=== PATIENT | male | born 1955 | race Caucasian/White ===

== ENCOUNTER 2018-07-27 13:32 | Outpatient (CLI) | payer MEDICARE ==
--- NOTE | 2018-07-27 15:43 | RAD ---
TWO VIEWS OF THE LEFT SHOULDER: COMPARISON: None. HISTORY: Left shoulder pain after a fall 6 months ago. FINDINGS: Two views of the left shoulder who no evidence of acute fracture or dislocation. No degenerative chas nges are seen. Hardware is seen in the spine. IMPRESSION: No evidence of acute osseous abnormality. POS: [facility]
== END 2018-07-27 13:33 | disposition home or self-care (01) ==
LOC: SCSRAD 13:32
PROVIDERS: ATTEND Family Medicine
DX: S46.912D Strain of unspecified muscle, fascia and tendon at shoulder and upper arm level, left arm, subsequent encounter (principal)
CPT/HCPCS: 36415; 80053; 80061; 81001; 82306; 83540; 83550; 85025; 86803

== ENCOUNTER 2024-04-21 18:35 | Inpatient (IN) | payer MEDICARE ==
[~2024-04-21 18:35] MED LIST: Iopamidol-370 76% 500 ML MDV (1 ML CHARGE) ONE
[2024-04-21] MEDS ORDERED: Piperacillin/Tazobactam 4.5 GM VIAL ONE (19:16)
[2024-04-21] MEDS ORDERED: Sodium Chloride 0.9% 100 ML ONE (19:16)
[2024-04-21 20:51] LABS: #Basophils 0.05 10x3/uL (0.0-0.2); %Basophils 0.4 % (0.0-1.0); %Eosinophils 1.7 % (0.0-10.0); %Lymphocytes 9.9 % (21.0-51.0); %Monocytes 5.4 % (0.0-10.0); %Neutrophils 81.9 % (42.0-75.0); Hematocrit 33.7 % (42.0-52.0); Hemoglobin 10.6 g/dL (14.0-18.0); Mean Corpuscular HGB CONC 31.5 g/dL (32.0-36.0); Mean Corpuscular Hemoglobin 30.4 pg (27.0-31.0); Mean Corpuscular Volume 96.6 fL (78.0-98.0); Mean Platelet Volume 9.1 fL (7.4-10.4); Platelet Count 421 10x3/uL (130-400); RBC Distribution Width 13.8 % (11.5-14.5); Red Blood Cell (RBC) Count 3.49 mill/uL (4.70-6.10)
[2024-04-21 21:05] LABS: ALT (SGPT) 39 U/L (8-55); AST (SGOT) 98 U/L (5-34); Albumin 2.7 g/dL (3.4-4.8); Alkaline Phosphatase 65 U/L (40-110); Anion Gap 15 mmol/L (10-20); BUN (Urea Nitrogen) 34 mg/dL (8.4-25.7); Bilirubin, Total 0.5 mg/dL (0.2-1.2); CRP,High Sensitivity (Inhouse) 8.57 mg/dL (< or = 0.5); Calc. Creatinine Clearance 0 mL/min (70-130); Calcium 8.4 mg/dL (7.8-10.44); Carbon Dioxide 29 mmol/L (23-31); Chloride 99 mmol/L (98-107); Estimated GFR 50; Globulin 3.6 g/dL (2.4-3.5); Glucose 113 mg/dL (80-115); Lipase 9 U/L (8-78); Magnesium 1.9 mg/dL (1.6-2.6); Potassium 4.1 mmol/L (3.5-5.1); Protein, Total 6.3 g/dL (5.8-8.1); Sodium 139 mmol/L (136-145)
[2024-04-21 21:11] LABS: Troponin I Less than 0.010 ng/mL (< 0.028)
[2024-04-21 22:45] LABS: Bilirubin Negative (Negative); Blood, Urine 3+ (Negative); CAUTI Indications for Culture Pelvic or flank pain; Clarity Clear (Clear); Glucose, Urine (Dipstick) Normal (Negative); Ketone, Urine Negative (Negative); Leukocyte 500 Leu/uL (Negative); Nitrite Negative (Negative); Protein, Urine (Dipstick) 10 mg/dL (Neg-Trace); Specific Gravity, Urine 1.022 (1.002-1.036); Urobilinogen Normal mg/dL (Less than 2); WBC/HPF Greater than 50 HPF (0-3); pH, Urine 6.5 (5.0-9.0)
[2024-04-21 22:58] LABS: Squamous Epithelial 0-3 HPF (0-3); Transitional Epithelial 0-3 HPF (None Seen)
[2024-04-21 22:59] LABS: Bacteria/HPF Rare-Few HPF (None Seen)
[2024-04-21 23:00] LABS: Urine Culture Reflex Yes Yes
[2024-04-22 01:15] VITALS: BMI 40.3
[2024-04-22] MEDS: Vancomycin (BATCH) 2.5 GM in Premix 1 BAG IVPB SCH (02:52)
[2024-04-22] MEDS: Piperacillin/Tazobactam 3.375 GM in Sodium Chloride 0.9% 100 ML IVPB SCH (03:32)
[2024-04-22] MEDS: Lactated Ringer's 1,000 ML IV SCH ×2 (03:32→15:10)
[2024-04-22 04:20] LABS: Vancomycin, Random 36.5 ug/mL (See Comment)
[2024-04-22] MEDS ORDERED: Vancomycin 2 GM in Sodium Chloride 0.9% 500 ML IVPB SCH (09:00)
[2024-04-22] MEDS: Enoxaparin 40 MG (0.4 mL) SYRINGE SC SCH (09:16)
[2024-04-22 13:22] LABS: #Basophils 0.04 10x3/uL (0.0-0.2); %Basophils 0.5 % (0.0-1.0); %Eosinophils 1.2 % (0.0-10.0); %Lymphocytes 8.5 % (21.0-51.0); %Monocytes 6.8 % (0.0-10.0); %Neutrophils 82.3 % (42.0-75.0); Hematocrit 28.3 % (42.0-52.0); Mean Corpuscular HGB CONC 31.8 g/dL (32.0-36.0); Mean Corpuscular Hemoglobin 30.1 pg (27.0-31.0); Mean Corpuscular Volume 94.6 fL (78.0-98.0); Mean Platelet Volume 9.3 fL (7.4-10.4); Platelet Count 372 10x3/uL (130-400); RBC Distribution Width 13.7 % (11.5-14.5); Red Blood Cell (RBC) Count 2.99 mill/uL (4.70-6.10)
[2024-04-22] MEDS ORDERED: Vancomycin (BATCH) 1.75 GM in Premix 1 BAG IVPB SCH (22:00)
[2024-04-22] MEDS: Vancomycin (BATCH) 1.5 GM in Premix 1 BAG IVPB SCH (23:09)
[2024-04-22] MEDS: Albumin 25% 25 GM (100 mL) BOT IVPB SCH (23:42)
[2024-04-22 23:48] LABS: #Basophils 0.04 10x3/uL (0.0-0.2); %Basophils 0.6 % (0.0-1.0); %Eosinophils 2.4 % (0.0-10.0); %Lymphocytes 17.9 % (21.0-51.0); %Monocytes 11.6 % (0.0-10.0); %Neutrophils 66.8 % (42.0-75.0); Hematocrit 25.7 % (42.0-52.0); Hemoglobin 8.1 g/dL (14.0-18.0); Mean Corpuscular HGB CONC 31.5 g/dL (32.0-36.0); Mean Corpuscular Hemoglobin 30.5 pg (27.0-31.0); Mean Corpuscular Volume 96.6 fL (78.0-98.0); Mean Platelet Volume 9.4 fL (7.4-10.4); Platelet Count 309 10x3/uL (130-400); RBC Distribution Width 13.9 % (11.5-14.5); Red Blood Cell (RBC) Count 2.66 mill/uL (4.70-6.10)
[2024-04-23] LABS: ALT (SGPT) 28 U/L (8-55); AST (SGOT) 54 U/L (5-34); Alkaline Phosphatase 45 U/L (40-110); Anion Gap 11 mmol/L (10-20); BUN (Urea Nitrogen) 24 mg/dL (8.4-25.7); Bilirubin, Total 0.4 mg/dL (0.2-1.2); Calc. Creatinine Clearance 145 mL/min (70-130); Calcium 7.6 mg/dL (7.8-10.44); Carbon Dioxide 24 mmol/L (23-31); Chloride 103 mmol/L (98-107); Estimated GFR 94; Globulin 2.9 g/dL (2.4-3.5); Glucose 131 mg/dL (80-115); Potassium 3.9 mmol/L (3.5-5.1); Protein, Total 4.9 g/dL (5.8-8.1); Sodium 134 mmol/L (136-145)
[2024-04-23] MEDS: tiZANidine HCl 4 MG TAB PO SCH (00:30)
[2024-04-23] MEDS ORDERED: NOREPINEPHRINE 8 MG/250 ML-D5W 250 ML IVPB SCH (00:45)
[2024-04-23 01:20] LABS: Magnesium 1.5 mg/dL (1.6-2.6)
[2024-04-23] MEDS ORDERED: Electrolyte Replacement Protocol 1 EACH FS PRN (03:03)
[2024-04-23] MEDS: Magnesium 2 GM/50 ML(in water) 2 GM in Premix 1 BAG IVPB SCH ×2 (03:32→12:06)
[2024-04-23] MEDS: Vancomycin 1 GM in Premix 1 BAG IVPB SCH (08:07)
[2024-04-23] MEDS: Enoxaparin 40 MG (0.4 mL) SYRINGE SC SCH (08:07)
[2024-04-23] MEDS: Famotidine 20 MG TAB PO SCH (08:08)
[2024-04-23] MEDS: Pregabalin 75 MG CAP PO SCH (08:10)
[2024-04-23 08:35] LABS: ALT (SGPT) 72 U/L (8-55); AST (SGOT) 97 U/L (5-34); Albumin 2.5 g/dL (3.4-4.8); Alkaline Phosphatase 72 U/L (40-110); Anion Gap 13 mmol/L (10-20); BUN (Urea Nitrogen) 20 mg/dL (8.4-25.7); Bilirubin, Total 0.6 mg/dL (0.2-1.2); CK (CPK) 2222 U/L (30-200); Calc. Creatinine Clearance 161 mL/min (70-130); Calcium 7.9 mg/dL (7.8-10.44); Carbon Dioxide 23 mmol/L (23-31); Chloride 106 mmol/L (98-107); Estimated GFR 97; Globulin 2.8 g/dL (2.4-3.5); Glucose 96 mg/dL (80-115); Magnesium 1.6 mg/dL (1.6-2.6); Protein, Total 5.3 g/dL (5.8-8.1); Sodium 138 mmol/L (136-145)
[2024-04-23 09:14] LABS: #Basophils 0.03 10x3/uL (0.0-0.2); %Basophils 0.4 % (0.0-1.0); %Eosinophils 2.8 % (0.0-10.0); %Lymphocytes 10.1 % (21.0-51.0); %Monocytes 8.6 % (0.0-10.0); %Neutrophils 77.5 % (42.0-75.0); Hematocrit 28.3 % (42.0-52.0); Hemoglobin 8.9 g/dL (14.0-18.0); Mean Corpuscular HGB CONC 31.4 g/dL (32.0-36.0); Mean Corpuscular Hemoglobin 30.4 pg (27.0-31.0); Mean Corpuscular Volume 96.6 fL (78.0-98.0); Mean Platelet Volume 9.1 fL (7.4-10.4); Platelet Count 329 10x3/uL (130-400); RBC Distribution Width 13.8 % (11.5-14.5); Red Blood Cell (RBC) Count 2.93 mill/uL (4.70-6.10)
[2024-04-23 11:02] LABS: Platelet Adequacy Comment Platelets Normal; Polychromasia SLIGHT = 2-3 cells HPF (0-2); Stomatocytes SLIGHT = 2-5 cells HPF (0-1)
[2024-04-23] MEDS: oxyCODONE ER 80 MG TAB PO SCH (11:41)
[2024-04-23] MEDS: HYDROcodone/Acetaminophen 5/325 mg Tablet PO PRN (18:36)
[2024-04-23] MEDS: Acetaminophen 325 MG TAB PO PRN (19:33)
[2024-04-24 05:10] LABS: Vancomycin, Random 31.7 ug/mL (See Comment)
[2024-04-24 05:11] LABS: Calc. Creatinine Clearance 179 mL/min (70-130); Estimated GFR 100; Magnesium 1.8 mg/dL (1.6-2.6)
[2024-04-24] MEDS: Magnesium 2 GM/50 ML(in water) 2 GM in Premix 1 BAG IVPB SCH (08:02)
[2024-04-24 10:23] VITALS: BMI 39.5
[2024-04-24] MEDS: Diazepam 5 MG TAB PO SCH (20:54)
[2024-04-24] MEDS: oxyCODONE 5 MG TAB PO SCH (20:55)
[2024-04-24] MEDS: Vancomycin HCl 750 MG in Sodium Chloride 0.9% 250 ML 250 ML IVPB SCH (21:38)
[2024-04-25] MEDS: FLU (Fluad Triv) TS24-25 (65UP)/MF59C/PF 45 MCG/0.5 ML Syringe IM ONE (07:35)
[2024-04-25] MEDS ORDERED: Sodium Chloride 0.9% 100 ML ONE (17:14)
[2024-04-25] MEDS ORDERED: Piperacillin/Tazobactam 3.375 GM VIAL ONE (17:14)
[2024-04-25] MEDS ORDERED: PROPOFOL 20 ML ONE (17:42)
[2024-04-25] MEDS ORDERED: fentaNYL 50 mcg/mL 1 mL Vial ONE (17:43)
[2024-04-25] MEDS ORDERED: Midazolam HCl 2 mg/2 ml Vial ONE ×3 (18:21→18:30)
[2024-04-25] MEDS ORDERED: fentaNYL PF 100 MCG/2 ML SYRINGE ONE (18:22)
[2024-04-25] MEDS ORDERED: Labetalol HCl 100 MG/20 ML VIAL ONE (18:48)
[2024-04-26 06:18] LABS: Vancomycin, Random 23.9 ug/mL (See Comment)
[2024-04-26 08:37] LABS: #Basophils 0.05 10x3/uL (0.0-0.2); %Basophils 0.7 % (0.0-1.0); %Lymphocytes 16.8 % (21.0-51.0); %Monocytes 7.8 % (0.0-10.0); %Neutrophils 70.3 % (42.0-75.0); Hematocrit 27.4 % (42.0-52.0); Hemoglobin 8.7 g/dL (14.0-18.0); Mean Corpuscular HGB CONC 31.8 g/dL (32.0-36.0); Mean Corpuscular Hemoglobin 30.4 pg (27.0-31.0); Mean Corpuscular Volume 95.8 fL (78.0-98.0); Platelet Count 338 10x3/uL (130-400); RBC Distribution Width 13.6 % (11.5-14.5); Red Blood Cell (RBC) Count 2.86 mill/uL (4.70-6.10)
[2024-04-26 08:55] LABS: ALT (SGPT) 29 U/L (8-55); AST (SGOT) 19 U/L (5-34); Albumin 2.3 g/dL (3.4-4.8); Alkaline Phosphatase 57 U/L (40-110); Anion Gap 10 mmol/L (10-20); BUN (Urea Nitrogen) 12 mg/dL (8.4-25.7); Bilirubin, Total 0.4 mg/dL (0.2-1.2); CK (CPK) 177 U/L (30-200); Calc. Creatinine Clearance 198 mL/min (70-130); Calcium 8.1 mg/dL (7.8-10.44); Carbon Dioxide 26 mmol/L (23-31); Chloride 106 mmol/L (98-107); Estimated GFR 102; Globulin 2.9 g/dL (2.4-3.5); Glucose 92 mg/dL (80-115); Magnesium 1.8 mg/dL (1.6-2.6); Potassium 3.3 mmol/L (3.5-5.1); Protein, Total 5.2 g/dL (5.8-8.1); Sodium 139 mmol/L (136-145)
[2024-04-26] MEDS: Magnesium 2 GM/50 ML(in water) 2 GM in Premix 1 BAG IVPB SCH (10:49)
[2024-04-26] MEDS: Potassium Chloride 20 MEQ TAB PO SCH (10:49)
[2024-04-26] MEDS: LevoFLOXacin 750 MG TAB PO SCH (14:45)
[2024-04-26 14:51] VITALS: BP 132/80; TEMP 97.5
== END 2024-04-26 15:50 | disposition home or self-care (01) | DRG 673 ==
LOC: ERS 18:35 → PCU 22:59 → OBSVTOIN 04-22 12:00 → 2SE 04-22 22:41 → CCU 04-23 01:12 → SURG B 04-23 09:58
PROVIDERS: ADMIT Internal Medicine; ATTEND Internal Medicine
PROC: 0JB70ZZ Excision of Back Subcutaneous Tissue and Fascia, Open Approach (ICD-10-PCS; principal; 2024-04-25)
DX: T83.511A Infection and inflammatory reaction due to indwelling urethral catheter, initial encounter (principal); A41.9 Sepsis, unspecified organism; R65.20 Severe sepsis without septic shock; G82.20 Paraplegia, unspecified; N10 Acute pyelonephritis; L03.319 Cellulitis of trunk, unspecified; M62.82 Rhabdomyolysis; Z68.41 Body mass index [BMI] 40.0-44.9, adult; N17.9 Acute kidney failure, unspecified; N39.0 Urinary tract infection, site not specified; E66.01 Morbid (severe) obesity due to excess calories; I10 Essential (primary) hypertension; K59.00 Constipation, unspecified; R33.9 Retention of urine, unspecified; F17.210 Nicotine dependence, cigarettes, uncomplicated; G47.33 Obstructive sleep apnea (adult) (pediatric); L89.152 Pressure ulcer of sacral region, stage 2; N18.2 Chronic kidney disease, stage 2 (mild); I12.9 Hypertensive chronic kidney disease with stage 1 through stage 4 chronic kidney disease, or unspecified chronic kidney disease; Z74.01 Bed confinement status
CPT/HCPCS: 36415; 36416; 71045; 71275; 74177; 80053; 80202; 81001; 82550; 82565; 83605; 83690; 83735; 83880; 84484; 85025; 86141; 87040; 87070; 87077; 87086; 87205; 88304; 93005; 96365; 96366; 96375; 97139; C1751; J1650; J2250; J2543; J2704; J3010; J3370; J3370-JW; J3475; J7050; J7120; P9047; Q9967

== ENCOUNTER 2024-05-07 14:22 | Inpatient (IN) | payer MEDICARE ==
[2024-05-07 15:30] LABS: ALT (SGPT) 16 U/L (8-55); AST (SGOT) 31 U/L (5-34); Albumin 2.9 g/dL (3.4-4.8); Alkaline Phosphatase 65 U/L (40-110); Anion Gap 14 mmol/L (10-20); BUN (Urea Nitrogen) 51 mg/dL (8.4-25.7); Bilirubin, Total 0.5 mg/dL (0.2-1.2); Calc. Creatinine Clearance 0 mL/min (70-130); Calcium 8.8 mg/dL (7.8-10.44); Carbon Dioxide 23 mmol/L (23-31); Chloride 99 mmol/L (98-107); Estimated GFR 52; Globulin 3.7 g/dL (2.4-3.5); Glucose 98 mg/dL (80-115); Lipase 7 U/L (8-78); Magnesium 2.8 mg/dL (1.6-2.6); Potassium 5.1 mmol/L (3.5-5.1); Protein, Total 6.6 g/dL (5.8-8.1); Sodium 131 mmol/L (136-145)
[2024-05-07] MEDS ORDERED: Sodium Chloride 0.9% 100 ML ONE (15:37)
[2024-05-07] MEDS ORDERED: Cefepime 2 GM VIAL ONE (15:37)
[2024-05-07 15:55] LABS: #Basophils 0.08 10x3/uL (0.0-0.2); %Basophils 0.8 % (0.0-1.0); %Eosinophils 1.9 % (0.0-10.0); %Lymphocytes 11.5 % (21.0-51.0); %Monocytes 8.3 % (0.0-10.0); %Neutrophils 76.5 % (42.0-75.0); Hematocrit 35.6 % (42.0-52.0); Hemoglobin 11.6 g/dL (14.0-18.0); Mean Corpuscular HGB CONC 32.6 g/dL (32.0-36.0); Mean Corpuscular Hemoglobin 29.4 pg (27.0-31.0); Mean Corpuscular Volume 90.4 fL (78.0-98.0); Platelet Count 291 10x3/uL (130-400); RBC Distribution Width 14.5 % (11.5-14.5); Red Blood Cell (RBC) Count 3.94 mill/uL (4.70-6.10)
[2024-05-07] MEDS ORDERED: Ondansetron ODT 4 MG TAB SL PRN (18:15)
[2024-05-07] MEDS ORDERED: Ondansetron PF 4 MG/2 ML Vial IVP PRN ×2 (18:15→19:31)
[2024-05-07] MEDS ORDERED: Acetaminophen 325 MG TAB PO PRN (18:15)
[2024-05-07 19:16] LABS: Lactic Acid 2.04 mmol/L (0.5-2.2)
[2024-05-07] MEDS ORDERED: Bisacodyl 10 MG SUPP PR PRN (19:51)
[2024-05-07] MEDS: Vancomycin (BATCH) 2 GM in Premix 1 BAG IVPB SCH (21:04)
[2024-05-07] MEDS: Sodium Chloride 0.9% 1,000 ML IV SCH ×2 (21:10→23:50)
[2024-05-07] MEDS: Diazepam 5 MG TAB PO SCH (22:19)
[2024-05-07] MEDS: oxyCODONE ER 80 MG TAB PO SCH (22:20)
[2024-05-07] MEDS: Methenamine Hippurate 1 GM TAB PO SCH (22:20)
[2024-05-07] MEDS: Heparin 5,000 UNITS/ML VIAL SC SCH (22:22)
[2024-05-07 23:36] VITALS: BMI 41.8
[2024-05-07] MEDS: tiZANidine HCl 4 MG TAB PO SCH (23:44)
[2024-05-07] MEDS: Vancomycin 1 GM in Premix 1 BAG IVPB SCH (23:45)
[2024-05-08] MEDS: Cefepime 1 GM in Sodium Chloride 0.9% 100 ML IVPB SCH (03:13)
[2024-05-08 06:28] LABS: Vancomycin, Random 19.5 ug/mL (See Comment)
[2024-05-08 06:31] LABS: Anion Gap 15 mmol/L (10-20); BUN (Urea Nitrogen) 43 mg/dL (8.4-25.7); Calc. Creatinine Clearance 121 mL/min (70-130); Calcium 8.4 mg/dL (7.8-10.44); Carbon Dioxide 20 mmol/L (23-31); Chloride 105 mmol/L (98-107); Estimated GFR 79; Glucose 101 mg/dL (80-115); Potassium 5.3 mmol/L (3.5-5.1); Sodium 135 mmol/L (136-145)
[2024-05-08] MEDS ORDERED: Triamterene/Hydrochlorothiazide 37.5 mg/25 mg Tablet PO SCH (09:00)
[2024-05-08] MEDS: Lisinopril 10 MG TAB PO SCH (09:12)
[2024-05-08] MEDS: Pregabalin 75 MG CAP PO SCH (09:13)
[2024-05-08] MEDS: Cefepime 2 GM in Sodium Chloride 0.9% 100 ML IVPB SCH (15:35)
[2024-05-08] MEDS: Vancomycin (BATCH) 1.5 GM in Premix 1 BAG IVPB SCH (18:13)
[2024-05-08] MEDS: oxyCODONE 5 MG TAB PO SCH (20:02)
[2024-05-08 20:27] LABS: #Basophils 0.08 10x3/uL (0.0-0.2); %Basophils 0.7 % (0.0-1.0); %Lymphocytes 7.2 % (21.0-51.0); %Monocytes 9.1 % (0.0-10.0); %Neutrophils 81.2 % (42.0-75.0); Hematocrit 31.8 % (42.0-52.0); Hemoglobin 10.1 g/dL (14.0-18.0); Mean Corpuscular HGB CONC 31.8 g/dL (32.0-36.0); Mean Corpuscular Hemoglobin 29.8 pg (27.0-31.0); Mean Corpuscular Volume 93.8 fL (78.0-98.0); Mean Platelet Volume 9.6 fL (7.4-10.4); Platelet Count 353 10x3/uL (130-400); RBC Distribution Width 14.2 % (11.5-14.5); Red Blood Cell (RBC) Count 3.39 mill/uL (4.70-6.10)
[2024-05-08] MEDS: oxyCODONE ER 80 MG TAB PO SCH (20:45)
[2024-05-09] MEDS ORDERED: oxyCODONE 5 MG TAB PO SCH (03:00)
[2024-05-09] MEDS ORDERED: PROPOFOL 200 MG/20 ML VIAL ONE (06:20)
[2024-05-09] MEDS ORDERED: Bupivacaine 0.25% HCL 30 ML VIAL ONE (06:20)
[2024-05-09] MEDS ORDERED: EPINEPHrine 1 MG/ML AMP ONE (06:20)
[2024-05-09] MEDS ORDERED: Lidocaine 2% PF 5 ML VIAL ONE (06:20)
[2024-05-09] MEDS ORDERED: Diazepam 5 MG TAB ONE (20:10)
[2024-05-09] MEDS ORDERED: Methenamine Hippurate 1 GM TAB ONE (20:10)
[2024-05-09] MEDS ORDERED: Heparin 5,000 UNITS/ML VIAL ONE (20:10)
[2024-05-09] MEDS ORDERED: Oxybutynin 5 MG TAB ONE (20:10)
[2024-05-09] MEDS ORDERED: tiZANidine HCl 4 MG TAB ONE (20:10)
[2024-05-09] MEDS ORDERED: oxyCODONE ER 80 MG TAB ONE (21:15)
[2024-05-10] MEDS ORDERED: Pregabalin 75 MG CAP ONE ×2 (03:40)
[2024-05-10] MEDS ORDERED: Oxybutynin 5 MG TAB ONE (03:40)
[2024-05-10] MEDS ORDERED: Sodium Chloride 0.9% 1,000 ML BAG ONE (03:40)
[2024-05-10] MEDS ORDERED: Cefepime 2 GM VIAL ONE (03:40)
[2024-05-10] MEDS ORDERED: oxyCODONE ER 80 MG TAB ONE ×2 (06:31→20:10)
[2024-05-10] MEDS ORDERED: Methenamine Hippurate 1 GM TAB ONE ×2 (08:56→20:10)
[2024-05-10] MEDS ORDERED: Heparin 5,000 UNITS/ML VIAL ONE ×2 (08:56→20:10)
[2024-05-10] MEDS ORDERED: Lisinopril 10 MG TAB ONE (08:56)
[2024-05-10] MEDS: Acetaminophen 325 MG TAB PO PRN (16:58)
[2024-05-10] MEDS: Polyethylene Glycol 3350 17 GM Packet PO PRN (17:05)
[2024-05-10] MEDS: Pregabalin 75 MG CAP ONE (18:45)
[2024-05-10] MEDS: tiZANidine HCl 4 MG TAB ONE (18:45)
[2024-05-10] MEDS: Diazepam 5 MG TAB ONE (18:45)
[2024-05-10] MEDS ORDERED: Diazepam 5 MG TAB ONE (20:10)
[2024-05-11] MEDS: Diazepam 5 MG TAB ONE ×2 (02:55→20:03)
[2024-05-11] MEDS: tiZANidine HCl 4 MG TAB ONE ×2 (02:56→20:03)
[2024-05-11] MEDS ORDERED: Sodium Chloride 0.9% 1,000 ML BAG ONE (03:10)
[2024-05-11] MEDS ORDERED: Cefepime 2 GM VIAL ONE (03:10)
[2024-05-11] MEDS ORDERED: Oxybutynin 5 MG TAB ONE (03:10)
[2024-05-11] MEDS: Pregabalin 75 MG CAP ONE (03:28)
[2024-05-11] MEDS ORDERED: oxyCODONE ER 80 MG TAB ONE (06:06)
[2024-05-11 06:53] LABS: Vancomycin, Random 22.7 ug/mL (See Comment)
[2024-05-11 08:30] LABS: #Basophils 0.05 10x3/uL (0.0-0.2); %Basophils 0.7 % (0.0-1.0); %Eosinophils 2.3 % (0.0-10.0); %Lymphocytes 11.6 % (21.0-51.0); %Monocytes 9.5 % (0.0-10.0); %Neutrophils 75.3 % (42.0-75.0); Hematocrit 29.5 % (42.0-52.0); Hemoglobin 9.2 g/dL (14.0-18.0); Mean Corpuscular HGB CONC 31.2 g/dL (32.0-36.0); Mean Corpuscular Hemoglobin 29.3 pg (27.0-31.0); Mean Corpuscular Volume 93.9 fL (78.0-98.0); Mean Platelet Volume 9.3 fL (7.4-10.4); Platelet Count 337 10x3/uL (130-400); RBC Distribution Width 14.3 % (11.5-14.5); Red Blood Cell (RBC) Count 3.14 mill/uL (4.70-6.10)
[2024-05-11 08:57] LABS: ALT (SGPT) 14 U/L (8-55); AST (SGOT) 12 U/L (5-34); Albumin 2.2 g/dL (3.4-4.8); Alkaline Phosphatase 62 U/L (40-110); Anion Gap 12 mmol/L (10-20); BUN (Urea Nitrogen) 17 mg/dL (8.4-25.7); Bilirubin, Total 0.4 mg/dL (0.2-1.2); Calc. Creatinine Clearance 204 mL/min (70-130); Calcium 8.4 mg/dL (7.8-10.44); Carbon Dioxide 26 mmol/L (23-31); Chloride 105 mmol/L (98-107); Estimated GFR 105; Globulin 3.6 g/dL (2.4-3.5); Glucose 112 mg/dL (80-115); Potassium 4.3 mmol/L (3.5-5.1); Protein, Total 5.8 g/dL (5.8-8.1); Sodium 139 mmol/L (136-145)
[2024-05-11 09:09] VITALS: BMI 41.8
[2024-05-11] MEDS: Micafungin 100 MG in Sodium Chloride 0.9% 100 ML IVPB SCH (14:57)
[2024-05-11] MEDS: Vancomycin (BATCH) 1.5 GM in Premix 1 BAG IVPB SCH (18:24)
[2024-05-12] MEDS: Pregabalin 75 MG CAP ONE ×2 (03:06→08:39)
[2024-05-12 06:27] LABS: #Basophils 0.08 10x3/uL (0.0-0.2); %Basophils 1.2 % (0.0-1.0); %Eosinophils 4.5 % (0.0-10.0); %Lymphocytes 16.2 % (21.0-51.0); %Monocytes 9.4 % (0.0-10.0); %Neutrophils 68.3 % (42.0-75.0); Hematocrit 31.5 % (42.0-52.0); Hemoglobin 9.7 g/dL (14.0-18.0); Mean Corpuscular HGB CONC 30.8 g/dL (32.0-36.0); Mean Corpuscular Hemoglobin 29.4 pg (27.0-31.0); Mean Corpuscular Volume 95.5 fL (78.0-98.0); Mean Platelet Volume 9.1 fL (7.4-10.4); Platelet Count 329 10x3/uL (130-400); RBC Distribution Width 14.3 % (11.5-14.5)
[2024-05-12 06:46] LABS: Anion Gap 13 mmol/L (10-20); BUN (Urea Nitrogen) 15 mg/dL (8.4-25.7); Calc. Creatinine Clearance 211 mL/min (70-130); Calcium 8.6 mg/dL (7.8-10.44); Carbon Dioxide 24 mmol/L (23-31); Chloride 107 mmol/L (98-107); Estimated GFR 106; Glucose 102 mg/dL (80-115); Potassium 3.8 mmol/L (3.5-5.1); Sodium 140 mmol/L (136-145)
[2024-05-12] MEDS: Morphine 4 MG/ML VIAL SLOW IVP SCH (10:09)
[2024-05-12] MEDS: oxyCODONE ER 80 MG TAB ONE ×2 (10:10→20:32)
[2024-05-12] MEDS: Morphine 4 MG/ML VIAL ONE (10:10)
[2024-05-12] MEDS: Lidocaine 1% (PF) 30 ML VIAL ONE (14:12)
[2024-05-12] MEDS: tiZANidine HCl 4 MG TAB ONE (20:32)
[2024-05-12] MEDS: Diazepam 5 MG TAB ONE (20:32)
[2024-05-13] MEDS: Pregabalin 75 MG CAP ONE ×2 (03:12→08:47)
[2024-05-13] MEDS: oxyCODONE ER 80 MG TAB ONE ×3 (06:30→20:17)
[2024-05-13 09:50] LABS: #Basophils 0.08 10x3/uL (0.0-0.2); %Eosinophils 3.8 % (0.0-10.0); %Monocytes 8.1 % (0.0-10.0); %Neutrophils 72.1 % (42.0-75.0); Hematocrit 32.1 % (42.0-52.0); Hemoglobin 9.7 g/dL (14.0-18.0); Mean Corpuscular HGB CONC 30.2 g/dL (32.0-36.0); Mean Corpuscular Hemoglobin 28.9 pg (27.0-31.0); Mean Corpuscular Volume 95.5 fL (78.0-98.0); Mean Platelet Volume 9.1 fL (7.4-10.4); Platelet Count 383 10x3/uL (130-400); RBC Distribution Width 14.3 % (11.5-14.5); Red Blood Cell (RBC) Count 3.36 mill/uL (4.70-6.10)
[2024-05-13 10:09] LABS: Anion Gap 12 mmol/L (10-20); BUN (Urea Nitrogen) 16 mg/dL (8.4-25.7); Calc. Creatinine Clearance 223 mL/min (70-130); Calcium 8.5 mg/dL (7.8-10.44); Carbon Dioxide 23 mmol/L (23-31); Chloride 107 mmol/L (98-107); Estimated GFR 107; Glucose 127 mg/dL (80-115); Potassium 3.7 mmol/L (3.5-5.1); Sodium 138 mmol/L (136-145)
[2024-05-13 10:10] LABS: Vancomycin, Random 19.8 ug/mL (See Comment)
[2024-05-13] MEDS: tiZANidine HCl 4 MG TAB ONE (20:16)
[2024-05-13] MEDS: Diazepam 5 MG TAB ONE (20:16)
[2024-05-14] MEDS: Oxymetazoline HCl 0.05% (30 ML BOT) NS PRN (03:55)
[2024-05-14] MEDS: oxyCODONE ER 80 MG TAB ONE ×2 (08:26→21:10)
[2024-05-14] MEDS: Pregabalin 75 MG CAP ONE (08:26)
[2024-05-14] MEDS: Morphine 4 MG/ML VIAL SLOW IVP SCH (14:53)
[2024-05-14] MEDS: tiZANidine HCl 4 MG TAB ONE (19:25)
[2024-05-14] MEDS: Diazepam 5 MG TAB ONE (19:25)
[2024-05-15] MEDS: Pregabalin 75 MG CAP ONE ×2 (05:15→10:37)
[2024-05-15 06:10] LABS: #Basophils 0.06 10x3/uL (0.0-0.2); %Basophils 0.7 % (0.0-1.0); %Eosinophils 4.8 % (0.0-10.0); %Lymphocytes 17.6 % (21.0-51.0); %Monocytes 10.2 % (0.0-10.0); %Neutrophils 65.5 % (42.0-75.0); Hematocrit 26.9 % (42.0-52.0); Hemoglobin 8.3 g/dL (14.0-18.0); Mean Corpuscular HGB CONC 30.9 g/dL (32.0-36.0); Mean Corpuscular Hemoglobin 28.9 pg (27.0-31.0); Mean Corpuscular Volume 93.7 fL (78.0-98.0); Mean Platelet Volume 9.4 fL (7.4-10.4); Platelet Count 379 10x3/uL (130-400); RBC Distribution Width 14.4 % (11.5-14.5); Red Blood Cell (RBC) Count 2.87 mill/uL (4.70-6.10)
[2024-05-15 06:27] LABS: Anion Gap 10 mmol/L (10-20); BUN (Urea Nitrogen) 17 mg/dL (8.4-25.7); Calc. Creatinine Clearance 204 mL/min (70-130); Calcium 8.3 mg/dL (7.8-10.44); Carbon Dioxide 27 mmol/L (23-31); Chloride 103 mmol/L (98-107); Estimated GFR 105; Glucose 101 mg/dL (80-115); Potassium 3.7 mmol/L (3.5-5.1); Sodium 136 mmol/L (136-145)
[2024-05-15] MEDS: oxyCODONE ER 80 MG TAB ONE (08:17)
[2024-05-15] MEDS: Diazepam 5 MG TAB ONE (20:37)
[2024-05-15] MEDS: oxyCODONE ER 80 MG TAB PO SCH (20:53)
[2024-05-15] MEDS: tiZANidine HCl 4 MG TAB PO SCH (20:54)
[2024-05-16] MEDS: oxyCODONE ER 80 MG TAB PO SCH (08:17)
[2024-05-16 08:33] LABS: #Basophils 0.04 10x3/uL (0.0-0.2); %Basophils 0.5 % (0.0-1.0); %Eosinophils 4.7 % (0.0-10.0); %Lymphocytes 13.9 % (21.0-51.0); %Monocytes 7.8 % (0.0-10.0); %Neutrophils 72.2 % (42.0-75.0); Hematocrit 26.9 % (42.0-52.0); Hemoglobin 8.1 g/dL (14.0-18.0); Mean Corpuscular HGB CONC 30.1 g/dL (32.0-36.0); Mean Corpuscular Hemoglobin 28.4 pg (27.0-31.0); Mean Corpuscular Volume 94.4 fL (78.0-98.0); Mean Platelet Volume 9.3 fL (7.4-10.4); Platelet Count 383 10x3/uL (130-400); RBC Distribution Width 14.6 % (11.5-14.5); Red Blood Cell (RBC) Count 2.85 mill/uL (4.70-6.10)
[2024-05-16 08:51] LABS: Anion Gap 12 mmol/L (10-20); BUN (Urea Nitrogen) 18 mg/dL (8.4-25.7); Calc. Creatinine Clearance 223 mL/min (70-130); Calcium 8.6 mg/dL (7.8-10.44); Carbon Dioxide 26 mmol/L (23-31); Chloride 106 mmol/L (98-107); Estimated GFR 107; Glucose 105 mg/dL (80-115); Potassium 3.9 mmol/L (3.5-5.1); Sodium 140 mmol/L (136-145)
[2024-05-16] MEDS: Pregabalin 75 MG CAP PO SCH (08:58)
[2024-05-16] MEDS: Diazepam 5 MG TAB ONE (20:37)
[2024-05-17] MEDS: Ascorbic Acid 500 mg Chewable Tablet PO SCH (18:29)
[2024-05-17] MEDS: Ferrous Sulfate 325 MG TAB PO SCH (18:29)
[2024-05-17] MEDS: Diazepam 5 MG TAB ONE (20:36)
[2024-05-18 07:43] VITALS: BP 115/64; TEMP 97.7
[2024-05-18] MEDS ORDERED: Loratadine 10 MG TAB PO SCH (09:00)
== END 2024-05-18 09:56 | DRG 856 ==
LOC: ERS 14:22 → T4-B 18:02
PROVIDERS: ADMIT Internal Medicine; ATTEND Hospitalist
PROC: 0JB80ZZ Excision of Abdomen Subcutaneous Tissue and Fascia, Open Approach (ICD-10-PCS; principal; 2024-05-07)
PROC: 3E04329 Introduction of Other Anti-infective into Central Vein, Percutaneous Approach (ICD-10-PCS; 2024-05-07)
DX: T81.49XA Infection following a procedure, other surgical site, initial encounter (principal); A41.9 Sepsis, unspecified organism; R53.2 Functional quadriplegia; L03.313 Cellulitis of chest wall; N17.9 Acute kidney failure, unspecified; L03.312 Cellulitis of back [any part except buttock and flank]; E87.1 Hypo-osmolality and hyponatremia; Z68.41 Body mass index [BMI] 40.0-44.9, adult; N39.0 Urinary tract infection, site not specified; I96 Gangrene, not elsewhere classified; T81.44XA Sepsis following a procedure, initial encounter; I10 Essential (primary) hypertension; E66.01 Morbid (severe) obesity due to excess calories; E78.5 Hyperlipidemia, unspecified; E87.5 Hyperkalemia; G47.33 Obstructive sleep apnea (adult) (pediatric); N31.9 Neuromuscular dysfunction of bladder, unspecified; L89.892 Pressure ulcer of other site, stage 2; Z79.899 Other long term (current) drug therapy; Z86.19 Personal history of other infectious and parasitic diseases; Z74.01 Bed confinement status; Z87.828 Personal history of other (healed) physical injury and trauma
CPT/HCPCS: 36415; 36416; 74177; 80048; 80053; 80202; 82565; 83605; 83690; 83735; 85025; 86141; 87040; 87070; 87077; 87205; 93005; 96361; 96365; 96366; 96367; 97139; J0171; J0665; J0692; J1644; J2248; J2272; J2704; J3370; J7030